=== PATIENT | female | born 1995 | race African-American/Black ===

== ENCOUNTER 2018-04-11 14:04 | Emergency (ER) | payer MEDICAID ==
[~2018-04-11] VITALS: Ht 175.3 cm; Wt 68.2 kg
[2018-04-11 14:08] VITALS: Ht 175.3 cm; Wt 68.2 kg
[2018-04-11] MEDS ORDERED: ADDERALL 30 MG30 MG PO (14:09)
[2018-04-11] MEDS ORDERED: EPIPEN JR0.15 MG/01 IM (14:09)
[2018-04-11] MEDS ORDERED: AMOXICILLIN500 M1 PO (15:52)
[2018-04-11] MEDS ORDERED: PHENERGAN DM SYR5 ML PO (15:52)
[2018-04-11 16:44] VITALS: BP 147/80
== END 2018-04-11 16:05 | disposition home or self-care (01) ==
LOC: EDBD 14:04 → D.ER 14:04
DX: J06.9 Acute upper respiratory infection, unspecified (principal); R09.89 Other specified symptoms and signs involving the circulatory and respiratory systems